=== PATIENT | male | born 1955 | race Caucasian/White ===

== ENCOUNTER 2020-10-30 18:55 | Emergency (ER) | payer OTHER, SELFPAY ==
[2020-10-30 19:00] VITALS: BP 143/80; PULSE 68; RESP 18; TEMP 36.8; O2SAT 97; BMI 23.1
[2020-10-30 20:34] VITALS: BP 144/77; PULSE 55; O2SAT 100
[2020-10-30] MEDS: TET,DIPH,PERTUSS(ACELL),VAC/PF 0.5 ML SYRINGE IM (20:36)
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
[2020-10-31] MEDS: LIDO 1%/SOD BICARB 8.4% (10ML) 10 ML SYRINGE INJ
[2020-10-31 00:47] VITALS: BP 132/73; PULSE 54; RESP 14; O2SAT 98
--- NOTE | 2020-10-31 00:48 | PC.NURSE ---
Placed non adherent gauze wrapped with kerlix
== END 2020-10-31 01:00 | disposition home or self-care (01) ==
PROVIDERS: Emergency Provider Emergency Medicine; PCP Family Medicine
DX: S80.212A Abrasion, left knee, initial encounter (principal); S41.111A Laceration without foreign body of right upper arm, initial encounter; W45.8XXA Other foreign body or object entering through skin, initial encounter; Z23 Encounter for immunization
CPT/HCPCS: 12005; 90471; 99283; 99284; 90715